=== PATIENT | female | born 1960 | race Native Hawaiian/Other Pacific Islander ===

== ENCOUNTER 2017-02-19 08:21 | Emergency (ER) | payer BC ==
[~2017-02-19] VITALS: Ht 154.9 cm; Wt 47.2 kg
[2017-02-19 08:25] VITALS: TEMP 97.9
[2017-02-19 10:00] VITALS: BP 150/84
== END 2017-02-19 10:30 | disposition home or self-care (01) ==
LOC: ED 08:21
DX: S42.252A Displaced fracture of greater tuberosity of left humerus, initial encounter for closed fracture (principal); W19.XXXA Unspecified fall, initial encounter; Y92.098 Other place in other non-institutional residence as the place of occurrence of the external cause
CPT/HCPCS: 96372; 99283; J1885

== ENCOUNTER 2022-12-18 13:13 | Observation (INO) | payer BC ==
[2022-12-18] VITALS (7 sets, daily range): BP systolic 149–193; BP diastolic 59–113; TEMP 97.9–98.1; Ht 154.9 cm; Wt 46.3 kg
[~2022-12-18] VITALS: Ht 154.9 cm; Wt 46.3 kg
[2022-12-18 14:21] LABS: PLATELET COUNT 228 K/uL (152-353)
[2022-12-18 14:27] LABS: POTASSIUM 3.8 mmol/L (3.6-5.2)
[2022-12-19] VITALS: BP 183/101; TEMP 97.9
[2022-12-19 01:19] VITALS: BP 183/101; TEMP 97.9
[2022-12-19 05:19] VITALS: BP 169/99; TEMP 98
[2022-12-19 05:27] LABS: POTASSIUM 3.1 mmol/L (3.6-5.2)
[2022-12-19 07:56] VITALS: BP 164/98; TEMP 97.7
[2022-12-19] MEDS ORDERED: AMLODIPINE BESYLATE PO (10:55)
[2022-12-19] MEDS ORDERED: MEDROL DOSEPAK4 MG PO (10:59)
[2022-12-19] MEDS ORDERED: Z-PAK PO (11:01)
[2022-12-19] MEDS ORDERED: ALBU90AE13 INH (11:02)
[2022-12-19 11:54] VITALS: BP 169/98; TEMP 97.6
== END 2022-12-19 13:25 | disposition home or self-care (01) ==
LOC: ED 13:13 → MED/SURG 15:43
PROVIDERS: ADMIT Family Medicine; ATTEND Internal Medicine
DX: U07.1 COVID-19 (principal); J44.9 Chronic obstructive pulmonary disease, unspecified; E87.1 Hypo-osmolality and hyponatremia; I10 Essential (primary) hypertension; Z72.0 Tobacco use
CPT/HCPCS: 36415; 36600; 80048; 80053; 82550; 82805; 85027; 87040; 87635; 93005; 94664; 96361; 96365; 96367; 96372; 96374; 96375; 99221; 99284; G0378; J0456; J0696; J1100; J1650; J2930; J3490; U0003